=== PATIENT | female | born 1985 | race Caucasian/White ===

== ENCOUNTER 2018-11-13 20:43 | Emergency (ER) | payer MEDICAID ==
[~2018-11-13] VITALS: Ht 154.9 cm; Wt 71.7 kg
[2018-11-13 20:59] VITALS: Ht 154.9 cm; Wt 71.7 kg
[2018-11-14 01:23] LABS: microscopic required? YES; urine erythrocyte NEGATIVE (NEGATIVE)
[2018-11-14 03:14] VITALS: BP 110/78
== END 2018-11-14 03:14 | disposition home or self-care (01) ==
LOC: ED 20:43
PROVIDERS: Emergency Medicine
DX: K59.00 Constipation, unspecified (principal)
CPT/HCPCS: J1885